=== PATIENT | female | born 1970 | race Caucasian/White ===

== ENCOUNTER 2019-08-11 20:08 | Inpatient (IN) | payer MEDICAID, OTHER ==
[~2019-08-11] VITALS: Ht 152.4 cm; Wt 61.2 kg
[2019-08-11] MEDS ORDERED: ACETAMINOPHEN 325MG TABLET PO ONE (21:15)
[2019-08-11 21:16] LABS: BASOPHILS % 0.2 % (0.0-2.0); HEMATOCRIT. 36.9 % (36.0-48.0); HEMOGLOBIN. 12.6 g/dL (12.0-16.0); LYMPHOCYTES % 14.8 % (20.0-50.0); MEAN CORPUSCULAR HEMOGLOBIN 26.5 pg (28.0-32.0); MEAN CORPUSCULAR VOLUME 77.9 fL (81.0-99.0); MEAN PLATELET VOLUME 8.9 fl (7.4-10.4); MONOCYTES % 3.4 % (2.0-8.0); NEUTROPHILS % 81.6 % (40.0-76.0); PLATELET 184 x1000/uL (130-400); RED BLOOD CELL COUNT 4.73 mill/uL (4.2-5.4); RED CELL DISTRIBUTION WIDTH 16.6 % (11.6-14.6)
[2019-08-11 21:16] LABS: BG CARBOXYHEMOGLOBIN 0.4 % (0.5-1.5); BG DEOXYHEMOGLOBIN 1.9 % (0.0-5.0); BG FRACTION INSPIRED OXYGEN 100; BG HCO3 ACT 21.2 mmol/L (22.0-26.0); BG METHEMOGLOBIN 0.2 % (0.0-1.5); BG OXYGEN SATURATION 98.1 % (92.0-98.5); BG OXYHEMOGLOBIN 97.5 % (94.0-97.0); BG PCO2 31.8 mmHg (35.0-45.0); BG PH 7.442 (7.350-7.450); BG PO2 114.5 mmHg (75.0-100.0); BG SAMPLE SITE RIGHT FEMORAL; BG TOTAL HEMOGLOBIN 13.3 g/dL (12.0-18.0); BG VENT MODE MASK - NRB
[2019-08-11 21:18] LABS: CHLORIDE 99 mEq/L (98-107)
[2019-08-12] MEDS ORDERED: ONDANSETRON HCL 4MG/2ML INJ IV PRN (08:30)
[2019-08-12] MEDS ORDERED: CLONIDINE 0.1MG TABLET PO PRN (08:30)
[2019-08-12] MEDS ORDERED: AZITHROMYCIN 500 MG in DEXT 5% WATER 250 ML IV SCH (08:45)
[2019-08-12] MEDS: ENOXAPARIN 40MG/0.4ML SYR SUBCUT SCH (08:52)
[2019-08-12] MEDS: GUAIFENESIN 200MG/10ML SUGAR FREE UDC PO PRN ×3 (08:53→17:26)
[2019-08-12] MEDS ORDERED: DEXTROSE 50% WATER 50ML SYRINGE IV PRN (14:00)
[2019-08-12] MEDS: BLOOD SUGAR DIAGNOSTIC STRIP TEST SCH ×3 (14:10→21:37)
[2019-08-12] MEDS: INSULIN LISPRO (HIGH DOSE) 100 UNITS/ML SUBCUT SCH ×3 (14:20→21:43)
[2019-08-12 15:37] LABS: PHOSPHORUS 3.2 mg/dL (2.5-4.9)
[2019-08-12 15:42] LABS: CREATINE KINASE MB FRACTION < 1.0 ng/mL (0.5-3.6)
[2019-08-12] MEDS ORDERED: CEFTRIAXONE 1 G PREMIX 50 ML IV SCH (16:00)
[2019-08-12 17:02] LABS: CREATINE KINASE MB FRACTION <0.5 ng/mL ng/mL (0.5-3.6)
[2019-08-12] MEDS: ASCORBIC ACID 500 MG TABLET PO SCH (22:21)
[2019-08-13] MEDS: GUAIFENESIN 200MG/10ML SUGAR FREE UDC PO PRN (04:10)
[2019-08-13 04:37] LABS: CHLORIDE 102 mEq/L (98-107)
[2019-08-13 04:41] LABS: BASOPHILS % 0.2 % (0.0-2.0); HEMATOCRIT. 34.5 % (36.0-48.0); HEMOGLOBIN. 11.2 g/dL (12.0-16.0); LYMPHOCYTES % 13.4 % (20.0-50.0); MEAN CORPUSCULAR HEMOGLOBIN 25.3 pg (28.0-32.0); MEAN CORPUSCULAR VOLUME 77.8 fL (81.0-99.0); MEAN PLATELET VOLUME 8.4 fl (7.4-10.4); MONOCYTES % 5.7 % (2.0-8.0); NEUTROPHILS % 80.7 % (40.0-76.0); PLATELET 233 x1000/uL (130-400); RED BLOOD CELL COUNT 4.43 mill/uL (4.2-5.4); RED CELL DISTRIBUTION WIDTH 16.7 % (11.6-14.6)
[2019-08-13 04:45] LABS: HDL CHOLESTEROL 38 mg/dL (40-59); LDL CHOLESTEROL 116 mg/dL (5-100)
[2019-08-13] MEDS: INSULIN LISPRO (HIGH DOSE) 100 UNITS/ML SUBCUT SCH ×4 (08:20→21:29)
[2019-08-13] MEDS: BLOOD SUGAR DIAGNOSTIC STRIP TEST SCH ×4 (08:30→21:09)
[2019-08-13] MEDS ORDERED: AZITHROMYCIN 500 MG in DEXT 5% WATER 250 ML IV SCH (09:00)
[2019-08-13 09:20] VITALS: BP 118/55
[2019-08-13] MEDS: THIAMINE HCL 100MG TABLET PO SCH (10:05)
[2019-08-13] MEDS: ZINC SULFATE 220 MG ( 50 ) CAPSULE PO SCH (10:05)
[2019-08-13] MEDS: ASCORBIC ACID 500 MG TABLET PO SCH ×2 (10:06→21:08)
[2019-08-13] MEDS: ENOXAPARIN 40MG/0.4ML SYR SUBCUT SCH (10:06)
[2019-08-13 12:00] VITALS: BP 110/69
[2019-08-13] MEDS: AZITHROMYCIN 250 MG in DEXT 5% WATER 250 ML IV SCH (12:01)
[2019-08-13 16:00] VITALS: BP 101/45
[2019-08-13] MEDS ORDERED: CEFTRIAXONE 1 G PREMIX 50 ML IV SCH (16:00)
[2019-08-13 18:17] LABS: CLARITY URINE TURBID (CLEAR); COLOR URINE YELLOW (YELLOW); KETONES URINE 4+ (NEGATIVE); LEUKOCYTE ESTERASE URINE NEGATIVE (NEGATIVE); NITRITE URINE NEGATIVE (NEGATIVE); OCCULT BLOOD URINE 3+ (NEGATIVE); PH URINE 6.5 (4.5-8.0); PROTEIN URINE 2+ (NEGATIVE); SPECIFIC GRAVITY URINE 1.042 (1.005-1.030)
[2019-08-13 20:00] VITALS: BP 101/50
[2019-08-13 21:23] VITALS: BP 102/63
[2019-08-13] MEDS: ACETAMINOPHEN 325MG TABLET PO PRN (21:45)
[2019-08-14] VITALS: BP 108/55
[2019-08-14 04:00] VITALS: BP 107/59
[2019-08-14] MEDS: BLOOD SUGAR DIAGNOSTIC STRIP TEST SCH ×4 (05:55→21:25)
[2019-08-14 06:13] LABS: BASOPHILS % 0.5 % (0.0-2.0); EOSINOPHILS % 0.1 % (0.0-5.0); HEMATOCRIT. 34.5 % (36.0-48.0); HEMOGLOBIN. 11.5 g/dL (12.0-16.0); LYMPHOCYTES % 37.1 % (20.0-50.0); MEAN CORPUSCULAR HEMOGLOBIN 25.7 pg (28.0-32.0); MEAN CORPUSCULAR VOLUME 76.9 fL (81.0-99.0); MEAN PLATELET VOLUME 8.5 fl (7.4-10.4); MONOCYTES % 10.8 % (2.0-8.0); NEUTROPHILS % 51.5 % (40.0-76.0); PLATELET 302 x1000/uL (130-400); RED BLOOD CELL COUNT 4.48 mill/uL (4.2-5.4); RED CELL DISTRIBUTION WIDTH 16.9 % (11.6-14.6)
[2019-08-14 06:21] LABS: CHLORIDE 103 mEq/L (98-107)
[2019-08-14 08:00] VITALS: BP 110/56
[2019-08-14] MEDS: INSULIN LISPRO (HIGH DOSE) 100 UNITS/ML SUBCUT SCH ×4 (08:55→21:29)
[2019-08-14] MEDS: ENOXAPARIN 40MG/0.4ML SYR SUBCUT SCH (08:56)
[2019-08-14] MEDS: ZINC SULFATE 220 MG ( 50 ) CAPSULE PO SCH (08:56)
[2019-08-14] MEDS: ASCORBIC ACID 500 MG TABLET PO SCH ×2 (08:56→21:10)
[2019-08-14] MEDS: THIAMINE HCL 100MG TABLET PO SCH (08:56)
[2019-08-14] MEDS ORDERED: POTASSIUM CHLORIDE 20MEQ TABLET SR PO SCH (10:00)
[2019-08-14] MEDS: AZITHROMYCIN 250 MG in DEXT 5% WATER 250 ML IV SCH (10:12)
[2019-08-14 12:00] VITALS: BP 94/46
[2019-08-14] MEDS ORDERED: AZIT250T12 MT (14:19)
[2019-08-14 16:00] VITALS: BP 108/74
[2019-08-14] MEDS ORDERED: CEFTRIAXONE 1 G PREMIX 50 ML IV SCH (16:00)
[2019-08-14 20:00] VITALS: BP 96/33
[2019-08-14] MEDS: ACETAMINOPHEN 325MG TABLET PO PRN (21:29)
[2019-08-15] VITALS: BP 101/61
[2019-08-15 04:00] VITALS: BP 104/38
[2019-08-15] MEDS: BLOOD SUGAR DIAGNOSTIC STRIP TEST SCH (06:22)
[2019-08-15] MEDS ORDERED: AZITHROMYCIN 250 MG TABLET PO SCH (09:00)
[2019-08-15] MEDS: ASCORBIC ACID 500 MG TABLET PO SCH (09:17)
[2019-08-15] MEDS: ENOXAPARIN 40MG/0.4ML SYR SUBCUT SCH (09:18)
[2019-08-15] MEDS: ZINC SULFATE 220 MG ( 50 ) CAPSULE PO SCH (09:18)
[2019-08-15] MEDS: THIAMINE HCL 100MG TABLET PO SCH (09:18)
[2019-08-15] MEDS: INSULIN LISPRO (HIGH DOSE) 100 UNITS/ML SUBCUT SCH (09:19)
[2019-08-15 12:00] VITALS: BP 102/44
== END 2019-08-15 13:25 | disposition home or self-care (01) | DRG 720 ==
LOC: ER 20:08 → ENRESERV 08-12 10:03 → CANRESERV 08-12 10:03 → 7WST 08-13 00:27 → ENRESERV 08-13 07:47
PROVIDERS: ADMIT Internal Medicine; ATTEND Internal Medicine
DX: A41.89 Other specified sepsis (principal); U07.1 COVID-19; J96.01 Acute respiratory failure with hypoxia; E11.65 Type 2 diabetes mellitus with hyperglycemia; D72.810 Lymphocytopenia; E11.9 Type 2 diabetes mellitus without complications; J40 Bronchitis, not specified as acute or chronic; J12.89 Other viral pneumonia; R79.82 Elevated C-reactive protein (CRP)
CPT/HCPCS: 36415; 36600; 71045; 80048; 80053; 80061; 81003; 82375; 82805; 82962; 84443; 85025; 85379; 87635; 96365; 96367; 96372; 99285; J0456; J0696; J1650; J1815; J7060